=== PATIENT | female | born 1980 | race Caucasian/White ===

== ENCOUNTER 2016-10-12 06:14 | Emergency (ER) | payer BC ==
[~2016-10-12] VITALS: Ht 160 cm; Wt 94.5 kg
[~2016-10-12 06:14] MED LIST: BCPILLS PO; RIZA10TA18 PO; SERT-234 PO
[2016-10-12 06:18] VITALS: TEMP 36.6; Ht 160 cm; Wt 94.5 kg
[2016-10-12] MEDS ORDERED: MoRPHine SULFATE 10 MG/ML CARP/VIAL IM STA (06:42)
[2016-10-12] MEDS ORDERED: KETOROLAC TROMETHAMINE 60 MG/2 ML VIAL IM STA (06:42)
[2016-10-12] MEDS ORDERED: ONDANSETRON 4MG OD TAB PO STA (06:42)
--- NOTE | 2016-10-12 06:45 | EMERGENCY ROOM VISIT NOTE ---
History Report prepared by Shadia: Lottie Goodman Under the Supervision of: Dr. Mickey Self M.D. First contact with patient: 06:29 Chief Complaint: BACK PAIN Stated Complaint: SEVERE BACK PAIN History of Present Illness The patient is a 36 year old female who presents to the Emergency Room with complaints of worsening back pain beginning yesterday. She describes her pain as 8/10 in severity. The patient has a history of a herniated disc from a few years ago and notes every once in a while she experiences a flare up. The patient has never had back surgery. She notes that yesterday she was stretching her legs when the pain began. The patient then was in the car for sometime and notes that after the car ride her pain was worsened. She also notes that movement worsens the pain. She notes that the pain radiates down her legs with the pain being worse down the left leg more than the right. The patient describes tingling down her back and legs also. She denies numbness. The patient did take Oxycodone with no relief of her symptoms. She denies recent vigorous activity, recent trauma or falls, fevers, chance of , urinary symptoms, blood in urine, trouble controlling bowel or bladder, chest pain or shortness of breath. Source of History: patient, spouse/significant other Onset: yesterday Position: back Symptom Intensity: 8/10 Timing: worsening Modifying Factors (Worsening): movement, other (sitting in car ride) Associated Symptoms: No fevers, No chest pain, No SOB, No urinary symptoms, No numbness Note: Patient is experiencing pain and tingling down legs. Review of Systems See HPI for pertinent positives & negatives. A total of 10 systems reviewed and were otherwise negative. Past Medical & Surgical Medical Problems: (1) Migraines Old medical records were reviewed. Nurse's notes were reviewed and I agree with. She has had back problems before but never had surgery Family History FH: cancer FH: heart disease Hypertension Seizures Social History Smoking Status: Never Smoker Smokeless Tobacco Use: No Marital Status: Housing Status: lives with family Occupation Status: employed Current/Historical Medications Scheduled Lisinopril (Lisinopril), 2 TABS PO DAILY Methylprednisolone (Medrol Dosepak), 0 PO DAILY Sertraline (Zoloft), 100 MG PO HS Scheduled PRN Oxycodone Immediate Rel Tab (Roxicodone Ir), 1-2 TAB PO Q4H PRN for Severe Pain Rizatriptan Benzoate (Maxalt), 10 MG PO Q12 PRN for Migraine Allergies Coded Allergies: No Known Allergies (Verified , NONE, 10/12/16) Physical Exam Vital Signs Date Time Temp Pulse Resp B/P (MAP) Pulse Ox O2 Delivery O2 Flow Rate FiO2 10/12/16 07:54 88 16 142/93 98 10/12/16 06:18 36.6 77 18 142/92 99 Room Air Physical Exam General: Well developed well nourished, mildly uncomfortable appearing young female, breathing comfortably on room air. Normal speech. Pain worsens with movement. HEENT: Normal cephalic atraumatic. Pupils are equal round and reactive to light. Extraocular movements are intact. Oropharynx is pink with moist mucous membranes. No swelling of the mouth lips or tongue. Neck: Supple with a midline trachea. No meningeal signs or stiffness, no JVD or bruits. No Stridor. Chest: Clear to auscultation bilaterally. No wheezes or rhonchi. No increased work of breathing. Heart: regular rate and rhythm. Abdomen: Soft nontender, nondistended without rebound guarding or rigidity. Extremities: No cyanosis clubbing or edema. No calf tenderness or assymetry Spine/Back. Tender to palpation to lower central lumbar. No CVA tenderness Skin: Good turgor without rashes. Neurologic exam: Cranial nerves two through 12 are intact. Motor and sensation are intact and symmetrical throughout. 2+ reflexes in lower extremities. Medical Decision & Procedures Medications Administered Medications (Trade) Dose Ordered Sig/Jeronimo Route Start Time Stop Time Status Last Admin Dose Admin Ketorolac Tromethamine (Toradol Inj) 60 mg NOW STAT IM 10/12/16 06:42 10/12/16 06:44 DC 10/12/16 06:53 60 MG Morphine Sulfate (MoRPHine SULFATE INJ) 8 mg NOW STAT IM 10/12/16 06:42 10/12/16 06:44 DC 10/12/16 06:54 8 MG Ondansetron HCl (Zofran Odt) 4 mg NOW STAT PO 10/12/16 06:42 10/12/16 06:44 DC 10/12/16 06:53 4 MG Prednisone (PredniSONE TAB) 60 mg NOW STAT PO 10/12/16 07:35 10/12/16 07:36 DC 10/12/16 07:50 60 MG ED Course 0634: Past medical records reviewed. The patient was evaluated in room A12, and a complete history and physical examination were performed. 0642: Zofran Odt 4 mg PO, Morphine Sulfate Inj 8 mg IM, Toradol Inj 60 mg IM. 0734: I reevaluated the patient and she is feeling better. 0735: Prednisone Tab 60 mg PO. 0740: Upon reevaluation, the patient is hemodynamically stable. I discussed the results and treatment plan with her. She verbalized agreement of the treatment plan. The patient was discharged home. Medical Decision Differentials include, but are not limited to; musculoskeletal disc disease, sciatica, infection, urinary tract infection, kidney stone. Medication Reconciliation: I attest that I have personally reviewed the patient' s current medication list. Hypertension screening: Diastolic mildly elevated most likely due to pain. Follow up with PCP recommended. This patient comes in as described above. She is placed in room A 12. she is having a flareup of her chronic back pain it does radiate down her left leg. she is neurologically and neurovascularly intact. She'shad nothing to suggest cauda equina syndrome. I do not think x-rays are going to be helpful at this point as there is no significant trauma and she has a normal neurologic exam including intact reflexes. She may ultimately need an MRI if the symptoms persist or worsen. Her is at the bedside and driving. She was given Toradol 60 mg IM and morphine 8 mg IM as well as Zofran 4 mg oral dissolving tablet. She is feeling significantly better. She will be discharged home. She will return if: increasing pain, numbness or weakness, change in bowel or bladder function, any new problems or concerns. She was given a prescription for OxyIR and can use this as directed. She was warned that this could make her drowsy do not take before drinking, driving, working. She should also use anti-inflammatory like ibuprofen and was given a short course of steroids as well. She was happy with plan discharge to home with her driving. Impression Primary Impression: Low back pain Additional Impression: Sciatica Scribe Attestation The scribe's documentation has been prepared under my direction and personally reviewed by me in its entirety. I confirm that the note above accurately reflects all work, treatment, procedures, and medical decision making performed by me. Departure Information Dispostion Home / Self-Care Prescriptions Methylprednisolone (MEDROL DOSEPAK) 4 Mg Pelon 0 PO DAILY, #1 PKT Prov: Mickey Self M.D. 10/12/16 Oxycodone Immediate Rel Tab (ROXICODONE IR) 5 Mg Tab 1-2 TAB PO Q4H Y for Severe Pain, #24 TAB Prov: Mickey Self M.D. 10/12/16 Referrals Martha Calle M.D. (PCP) Forms HOME CARE DOCUMENTATION FORM, IMPORTANT VISIT INFORMATION Patient Instructions My [facility] Additional Instructions Rest. Drink plenty of fluids. Use ibuprofen 600 mg every 6 hours, take with food For more severe pain, may use OxyIR 5 millgrams, one or 2 pills every 4-6 hours as needed OxyIR may make you drowsy and do not take before drinking, driving, working Use Medrol Dosepak as directedsteroids Return if: Increasing pain, worsening of symptoms, numbness or weakness, fever or chills, any new problems or concerns. Problem Qualifiers
[2016-10-12] MEDS ORDERED: LISI2.5T5 PO (06:53)
[2016-10-12] MEDS ORDERED: METH4PAK PO (07:38)
[2016-10-12] MEDS ORDERED: OXYC1TAB3 PO (07:38)
[2016-10-12 07:54] VITALS: BP 142/93; PULSE 88; O2SAT 98
== END 2016-10-12 08:18 | disposition home or self-care (01) ==
LOC: C.EDB 06:15 → C.EDA 08:18
DX: M51.16 Intervertebral disc disorders with radiculopathy, lumbar region (principal); Z80.9 Family history of malignant neoplasm, unspecified; Z82.49 Family history of ischemic heart disease and other diseases of the circulatory system; Z82.0 Family history of epilepsy and other diseases of the nervous system; Z79.899 Other long term (current) drug therapy